=== PATIENT | male | born 1990 | race Asian ===

== ENCOUNTER 2017-02-19 18:32 | Emergency (ER) | payer OTHER ==
[~2017-02-19] VITALS: Ht 170.2 cm; Wt 74.9 kg
[2017-02-19 18:37] VITALS: TEMP 36.5; Ht 170.2 cm; Wt 74.9 kg
[2017-02-19] MEDS ORDERED: XYLOCAINE 1%/SOD BICARB 20 ML VIAL INFIL STA (19:13)
--- NOTE | 2017-02-19 19:13 | DIAGNOSTIC IMAGING REPORT ---
R FINGER(S) MIN 2 VIEWS ROUTINE CLINICAL HISTORY: 26 years-old Male presenting with injury to right 5th finger. TECHNIQUE: Frontal, oblique, and lateral views of the right fifth finger were obtained. COMPARISON: None. FINDINGS: Dorsal dislocation of the proximal interphalangeal joint of the fifth finger with displacement of the middle and distal phalanges. The distal interphalangeal joint remains congruent. Regional soft tissue swelling abdomen the proximal interphalangeal joint. No acute fracture. No ossific fragment to suggest an avulsion injury, however, dislocation does raise concern for volar plate avulsion. The fifth metacarpal phalangeal joint is normal. IMPRESSION: Dislocation at the proximal interphalangeal joint of the right fifth finger. No radiographic evidence of fracture. Electronically signed by: Aj Callahan M.D. 02/19/2017 7:12 PM Dictated Date/Time: 02/19/2017 7:11 PM
--- NOTE | 2017-02-19 19:40 | EMERGENCY ROOM VISIT NOTE ---
ED Visit Note First contact with patient: 19:40 This Patient was discussed with the physician Staff Technologist, Gio Ramirez PA-C. The pertinent historical and physical exam findings were confirmed. I agree with the studies ordered and with the interpretations of these studies. I agree with the disposition and care plan.
--- NOTE | 2017-02-19 20:23 | DIAGNOSTIC IMAGING REPORT ---
R FINGER(S) MIN 2 VIEWS ROUTINE CLINICAL HISTORY: 26 years-old Male presenting with R 5th digit relocation. TECHNIQUE: Frontal, oblique, and lateral views of the right fifth finger were obtained. COMPARISON: Plain radiographs from earlier the same day. FINDINGS: There has been successful reduction of the previously seen dislocation of the proximal interphalangeal joint of the fifth finger. An ossific fragment along the volar aspect of the base of the middle phalanx consistent with avulsion fracture. Diffuse soft tissue swelling. No residual malalignment. IMPRESSION: 1. Volar plate avulsion fracture of the base of the middle phalanx. 2. Successful reduction of the PIP dislocation. Electronically signed by: Aj Callahan M.D. 02/19/2017 8:22 PM Dictated Date/Time: 02/19/2017 8:21 PM
--- NOTE | 2017-02-19 20:30 | EMERGENCY ROOM VISIT NOTE ---
History First contact with patient: 18:41 Chief Complaint: FINGER PAIN Stated Complaint: RT HAND, 5TH DIGIT INJURY History of Present Illness The patient is a 26 year old male who presents to the Emergency Room via private vehicle accompanied by male with complaints of "right hand, fifth digit injury". The patient states that just prior to arrival he was playing [place], and fell striking the right fifth digit off of the ground. He notes he believes it is dislocated. He rates the overall pain currently as a 3/10. He declines pain medication. Review of Systems A complete 6-point Review of Systems was discussed with the patient, with pertinent positives and negatives listed in the History of Present Illness. All remaining Review of Systems questions can be considered negative unless otherwise specified. Past Medical/Surgical History Noncontributory Family History Noncontributory Social History Smoking Status: Never Smoker Patient lives locally. He is a [employer] student. Physical Exam Vital Signs Date Time Temp Pulse Resp B/P (MAP) Pulse Ox O2 Delivery O2 Flow Rate FiO2 02/19/17 20:57 83 18 112/72 98 02/19/17 18:37 36.5 81 18 140/82 97 Room Air Physical Exam VITAL SIGNS - Vital signs and nursing notes were reviewed. Stable. Afebrile. GENERAL -26-year-old male appearing his stated age who is in no acute distress. Communicates well with provider and answers questions appropriately. SKIN - Without rashes. Skin overlying the right fifth digit is intact. There is deformity noted of the proximal joint. Good capillary refill. EXTREMITIES - there is tenderness along the patient's right fifth digit. No hand or other digit tenderness. Good capillary refill this region. Decreased range of motion secondary to dislocation suspected. Medical Decision & Procedures ER Provider Diagnostic Interpretation: R FINGER(S) MIN 2 VIEWS ROUTINE CLINICAL HISTORY: 26 years-old Male presenting with R 5th digit relocation. TECHNIQUE: Frontal, oblique, and lateral views of the right fifth finger were obtained. COMPARISON: Plain radiographs from earlier the same day. FINDINGS: There has been successful reduction of the previously seen dislocation of the proximal interphalangeal joint of the fifth finger. An ossific fragment along the volar aspect of the base of the middle phalanx consistent with avulsion fracture. Diffuse soft tissue swelling. No residual malalignment. IMPRESSION: 1. Volar plate avulsion fracture of the base of the middle phalanx. 2. Successful reduction of the PIP dislocation. Electronically signed by: Aj Callahan M.D. 02/19/2017 8:22 PM Dictated Date/Time: 02/19/2017 8:21 PM Medical Decision Patient was seen and evaluated as above. He presents to us today status post fall with a dislocation of the right fifth digit. This was verified via x-ray. I did attempt to relocate the patient without anesthetization after he provided consent 1. Decision was then made to anesthetize the finger. This was done in the usual fashion via digital block with 3 mL's of 1% buffered lidocaine. This was with good anesthetization. The attending physician I then relocated the patient's finger without difficulty. There was slight rotation and this was reduced. He was placed in a metal splint and postreduction films were obtained. There is a small fracture. He is to follow-up with orthopedics. He will use [id number] pain medication. He was educated upon management, educated upon worrisome symptoms which to return, had questions answered prior to discharge, and was discharged home in good condition. In the evaluation and treatment of this patient, the following differential diagnoses were considered: Finger Fracture, Finger Dislocation, Finger Sprain, Finger Contusion, Jersey Finger, or Mallet Finger. Impression Primary Impression: Finger fracture Additional Impression: Dislocation, finger closed Departure Information Dispostion Home / Self-Care Condition GOOD Referrals No Doctor, Assigned (PCP) Aj Calzada M.D. Patient Instructions My [facility] Additional Instructions You have been treated in the Emergency Department for finger Pain. There is a broken bone in the finger. For pain control, you can use the following [id number] medicines (if >12 yo): - Regular strength (325mg/tab) Tylenol (acetaminophen) 2 tabs every 4-6 hours as needed. Do not exceed 12 tablets in a 24 hour period. Avoid taking more than 3 grams (3000 mg) of Tylenol per day. This includes any other sources of acetaminophen you may take on a regular basis. - Regular strength (200 mg/tab) Advil (ibuprofen) 1-2 tabs every 4-6 hours as needed. Do not exceed a dose of 3200 mg per day. If this is a recent injury (<24 hrs), ice can be applied to the area of pain for the first 3 days to help decrease pain and inflammation. You have been provided the number for an Orthopaedic Surgeon. You should call this number as soon as possible to establish a follow-up visit from today's Emergency Department visit. Keep the brace/splint in place until evaluated by Orthopedics. Return to the Emergency Department if your current symptoms worsen despite treatment course outlined above, or if you develop any of the following symptoms : intractable pain despite aforementioned treatment course or new onset of numbness or tingling of the fingers. R FINGER(S) MIN 2 VIEWS ROUTINE CLINICAL HISTORY: 26 years-old Male presenting with R 5th digit relocation. TECHNIQUE: Frontal, oblique, and lateral views of the right fifth finger were obtained. COMPARISON: Plain radiographs from earlier the same day. FINDINGS: There has been successful reduction of the previously seen dislocation of the proximal interphalangeal joint of the fifth finger. An ossific fragment along the volar aspect of the base of the middle phalanx consistent with avulsion fracture. Diffuse soft tissue swelling. No residual malalignment. IMPRESSION: 1. Volar plate avulsion fracture of the base of the middle phalanx. 2. Successful reduction of the PIP dislocation. Electronically signed by: Aj Callahan M.D. 02/19/2017 8:22 PM Dictated Date/Time: 02/19/2017 8:21 PM Problem Qualifiers
[2017-02-19 20:57] VITALS: BP 112/72; PULSE 83; O2SAT 98
== END 2017-02-19 20:48 | disposition home or self-care (01) ==
LOC: C.EDB 18:33 → C.EDD 20:48
DX: S62.626A Displaced fracture of middle phalanx of right little finger, initial encounter for closed fracture (principal); S63.286A Dislocation of proximal interphalangeal joint of right little finger, initial encounter; W18.30XA Fall on same level, unspecified, initial encounter